=== PATIENT | male | born 1975 | race Caucasian/White ===

== ENCOUNTER 2016-08-29 18:26 | Inpatient (IN) | payer OTHER ==
[2016-08-29 19:07] LABS: % IMMATURE GRANULYOCYTES 0.4 % (0.0-1.1); ABSOLUTE IMMATURE GRANULOCYTES 0.01 10^3/uL (0.00-0.10); ADD DIFF? NO; ADD MORPH? NO; ADD SCAN? NO; ATYPICAL LYMPHOCYTE FLAG 60 (0-99); FRAGMENT RBC FLAG 0 (0-99); HEMATOCRIT 43.4 % (40.0-51.0); HEMOGLOBIN 15.5 g/dL (13.7-17.5); LEFT SHIFT FLG 0 (0-99); LIPEMIA HEMOLYSIS FLAG 90 (0-99); MEAN CELL HEMOGLOBIN 33.7 pg (27.9-34.1); MEAN CELL HEMOGLOBIN CONCENTR. 35.7 g/dL (32.4-36.7); MEAN CELL VOLUME 94.3 fL (81.5-99.8); MEAN PLATELET VOLUME 10.1 fL (8.7-11.7); PLATELET CLUMPS FLAG 0 (0-99); PLATELET COUNT 57 10^3/uL (150-400)
[2016-08-29] MEDS ORDERED: ONDANSETRON 4 MG/2 ML VIAL IVP ONE (19:09)
[2016-08-29] MEDS ORDERED: LORazepam 2 MG/ML INJ IVP ONE ×2 (19:09→20:19)
[2016-08-29] MEDS ORDERED: NS 1,000 ML IV ONE (19:09)
--- NOTE | 2016-08-29 19:17 | EDPHY ---
H & P Stated Complaint: Fever 24 hours, flank pain, weakness L arm. Time Seen by Provider: 08/29/16 18:53 HPI/ROS: CHIEF COMPLAINT: Fever, hand weakness HISTORY OF PRESENT ILLNESS: Patient is a 40-year-old man who has a history of alcohol abuse comes to the emergency department complaining of a fever, difficulty reading and hand weakness. He states that he drinks daily but stopped drinking 24 hours ago. He has mild tremors. He has not had a seizure. He did take the dog for a walk this afternoon and felt unusually fatigued and diaphoretic afterwards. He denies chest pain or shortness of breath. He has not had any recent flu or cold-like symptoms. No cough or sinus congestion or throat pain. After walking the dog he sat down to read emails. He states that the words in the e-mail appeared jumbled. He then tried to respond to the mail but states he cannot lift his hands off of the desk. He said there for about 10 minutes until he regained function of his right hand and was able to lift his left hand up. He went and laid on the couch for about half an hour until his symptoms seemed to improve. He sent a text to his girlfriend asked her to take him to the urgent care. They went to 2 urgent cares and both referred him to the emergency department. Denies any trauma. He does have a mild headache. He also complains of dysuria over the last week. They thought that he had a urinary tract infection and have been treating at home with cranberry juice and Pyridium. He denies risk of STD. No testicular pain. No back pain. He did vomit once last night but no longer feels nauseous. He is not an IV drug abuser. REVIEW OF SYSTEMS: Constitutional: See HPI EENTM: denies: blurred vision, double vision, nose congestion Respiratory: denies: cough, shortness of breath Cardiac: denies: chest pain, irregular heart rate, lightheadedness, palpitations Gastrointestinal/Abdominal: see HPI Genitourinary: See HPI Musculoskeletal: denies: joint pain, muscle pain Skin: denies: lesions, rash, jaundice, bruising Neurological: See HPI Hematologic/Lymphatic: denies: blood clots, easy bleeding, easy bruising Immunologic/allergic: denies: HIV/AIDS, transplant EXAM: GENERAL: Well-appearing, well-nourished and in no acute distress. HEAD: Atraumatic, normocephalic. EYES: Pupils equal round and reactive to light, extraocular movements intact, sclera anicteric, conjunctiva are normal. ENT: TMs normal, nares patent, oropharynx clear without exudates. Moist mucous membranes. NECK: Normal range of motion, supple without lymphadenopathy or JVD. Negative Kernig's and Brudzinski's LUNGS: Breath sounds clear to auscultation bilaterally and equal. No wheezes rales or rhonchi. HEART: Regular rate and rhythm without murmurs, rubs or gallops. ABDOMEN: Soft, nontender, normoactive bowel sounds. No guarding, no rebound. No masses appreciated. BACK: No CVA tenderness, no spinal tenderness, step-offs or deformities : No discharge with milking of the penile shaft. Mild erythema at the urethral opening. No testicular pain or swelling. EXTREMITIES: Normal range of motion, no pitting or edema. No clubbing or cyanosis. NEUROLOGICAL: Cranial nerves II through XII grossly intact. Normal speech, normal gait. 5/5 strength, normal movement in all extremities, normal sensation , normal movement of arms and hands. No pronator drift. Mild tremor with finger to nose. Normal heel to baires. PSYCH: Normal mood, normal affect. SKIN: Warm, dry, normal turgor, no visible rashes or lesions. Source: Patient, Family Exam Limitations: No limitations - Personal History Current Tetanus/Diphtheria Vaccine: Unsure Current Tetanus Diphtheria and Acellular Pertussis (TDAP): Unsure - Medical/Surgical History Hx Asthma: Yes Hx Chronic Respiratory Disease: No Hx Diabetes: No Hx Cardiac Disease: No Hx Renal Disease: No Hx Cirrhosis: No Hx Alcoholism: No Hx HIV/AIDS: No Hx Splenectomy or Spleen Trauma: No Other PMH: L ORIF hand, asthma - Family History Significant Family History: Hypertension - Social History Smoking Status: Never smoked Alcohol Use: Heavy Drug Use: Marijuana Constitutional: Initial Vital Signs Temperature (C) 39.4 C H 08/29/16 18:33 Heart Rate 133 H 08/29/16 18:33 Respiratory Rate 18 08/29/16 18:33 Blood Pressure 143/87 H 08/29/16 18:33 O2 Sat (%) 94 08/29/16 18:33 O2 Delivery Mode Room Air Allergies/Adverse Reactions: No Known Allergies Allergy (Verified 08/29/16 18:37) Home Medications: Medication Instructions Recorded Albuterol INH Prepack [Proventil 2 puffs IH Q6H PRN 08/29/16 INH Prepack] Medical Decision Making - Diagnostics EKG Interpretation: An EKG obtained and was read and documented in trace view. Please see trace view for full reading and report. Sinus tachycardia, no ischemic changes Imaging: Results: CT scan of the head was obtained. The results of the study are negative. The study was read by Dr. Khalif Valencia. I viewed the images myself on the PACS system. Results: CT scan of the abdomen and pelvis was obtained. The results of the study are negative for kidney stones. The study was read by Dr. Khalif Valencia. I viewed the images myself on the PACS system. ED Course/Re-evaluation: The patient's tremors have improved with Ativan and fluids. I have also given Tylenol. His urinalysis is positive. I will start him on antibiotics. He qualifies for sepsis but not severe sepsis. He is febrile, tachycardic and has a low white blood cell count. Also order CT scan to evaluate for kidney stone. He does not currently have any neurologic deficits other than the tremor. I will treat him with more Ativan as well. 9:00 p.m. discussed the case with Dr. Gage Giron who will admit to the medical service. Differential Diagnosis: Partial list of the Differential diagnosis considered include but were not limited to; alcohol withdrawal, intracranial abscess, pyelonephritis, kidney stone, urinary tract infection, sepsis and although unlikely based on the history and physical exam, I also considered meningitis, spinal cord abscess. Critical Care Time: I spent a total of 25 minutes of critical care time in obtaining history, performing a physical exam, bedside monitoring of interventions, collecting and interpreting tests and discussion with consultants but not including time spent performing procedures. - Data Points Laboratory Results: Laboratory Results 08/29/16 18:50 08/29/16 18:50 08/29/16 08/29/16 18:50 18:50 Total Bilirubin 1.2 mg/dL mg/dL (0.1-1.4) Conjugated Bilirubin 0.7 mg/dL H mg/dL (0.0-0.5) Unconjugated Bilirubin 0.5 mg/dL mg/dL (0.0-1.1) AST 556 IU/L H IU/L (17-59) ALT 255 IU/L H IU/L (21-72) Alkaline Phosphatase 80 IU/L IU/L (38-126) Total Protein 7.8 g/dL g/dL (6.3-8.2) Albumin 4.6 g/dL g/dL (3.5-5.0) RPR Pending Medications Given: Discontinued Medications Acetaminophen (Tylenol) 1,000 mg PO EDNOW ONE Stop: 08/29/16 19:49 Last Admin: 08/29/16 20:00 Dose: 1,000 mg Sodium Chloride (Ns) 1,000 mls @ 0 mls/hr IV ONCE ONE PRN Reason: Wide Open Stop: 08/29/16 19:10 Last Admin: 08/29/16 19:30 Dose: 1,000 mls Ceftriaxone Sodium/Dextrose (Rocephin 1 Gm (Premix)) 50 mls @ 100 mls/hr IV EDNOW ONE PRN Reason: Protocol Stop: 08/29/16 20:45 Last Admin: 08/29/16 20:36 Dose: 50 mls Lorazepam (Ativan Injection) 1 mg IVP EDNOW ONE Stop: 08/29/16 19:10 Last Admin: 08/29/16 19:40 Dose: 1 mg Lorazepam (Ativan Injection) 1 mg IVP EDNOW ONE Stop: 08/29/16 20:20 Last Admin: 08/29/16 20:35 Dose: 1 mg Ondansetron HCl (Zofran) 4 mg IVP EDNOW ONE Stop: 08/29/16 19:10 Last Admin: 08/29/16 19:40 Dose: 4 mg Sodium Chloride (Ns *For Sepsis Order Set Only*) 2,585 ml 30 ml/kg (2585 ml) IV EDNOW ONE Stop: 08/29/16 20:17 Last Admin: 08/29/16 20:00 Dose: 1,585 ml Departure - Departure Disposition: [facility] Inpatient Acute Clinical Impression: Urinary tract infection Qualifiers: Urinary tract infection type: site unspecified Hematuria presence: without hematuria Qualified Code(s): N39.0 - Urinary tract infection, site not specified Alcohol withdrawal Qualifiers: Complication of substance-induced condition: with unspecified complication Qualified Code(s): F10.239 - Alcohol dependence with withdrawal, unspecified Sepsis Qualifiers: Sepsis type: sepsis due to unspecified organism Qualified Code(s): A41.9 - Sepsis, unspecified organism Condition: Fair
[2016-08-29 19:22] LABS: ANION GAP 17 mEq/L (8-16); CALCIUM 9.3 mg/dL (8.5-10.4); CARBON DIOXIDE 19 mEq/l (22-31); CHLORIDE 98 mEq/L (97-110); GLOMERULAR FILTRATION RATE > 60; GLUCOSE 101 mg/dL (70-100); POTASSIUM 3.4 mEq/L (3.5-5.2); SODIUM 134 mEq/L (134-144)
--- NOTE | 2016-08-29 19:30 | CPEKG ---
Heart Rate: 122 RR Interval: 492 P-R Interval: 148 QRSD Interval: 74 QT Interval: 288 QTC Interval: 411 P [place]: 63 QRS [place]: -10 T Wave [place]: 54 EKG Severity - OTHERWISE NORMAL ECG - EKG Impression: SINUS TACHYCARDIA Electronically Signed By: Jose Elias Mayen 29-Aug-2016 19:49:51
[2016-08-29 19:33] LABS: APTT 28.8 SEC (23.0-38.0); INR 1.05 (0.83-1.16); PROTIME(PATIENT) 13.6 SEC (12.0-15.0)
[2016-08-29] MEDS ORDERED: ACETAMINOPHEN 500 MG TAB PO ONE (19:48)
[2016-08-29 19:58] LABS: COLOR AMBER; LEUKOCYTE ESTERASE,URINE NEGATIVE (NEGATIVE); NITRITE,URINE POSITIVE (NEGATIVE)
[2016-08-29 20:03] LABS: MUCUS 2+ /lpf (NONE-1+)
[2016-08-29] MEDS ORDERED: NS 1,000 ML BAG *FOR SEPSIS ORDER SET ONLY IV ONE (20:16)
[2016-08-29] MEDS ORDERED: PROTOCOL POTASSIUM 1 DOSE MISC PRN (23:35)
[2016-08-29] MEDS ORDERED: PROTOCOL MAGNESIUM 1 DOSE IV PRN (23:35)
[2016-08-29] MEDS ORDERED: ONDANSETRON DISINTEGRATING 4 MG TAB PO PRN (23:35)
[2016-08-29] MEDS ORDERED: HYDROCODONE/APAP 5/325 TAB PO PRN (23:35)
[2016-08-29] MEDS ORDERED: PROTOCOL K PHOSPHATE 1 DOSE IV PRN (23:35)
[2016-08-29] MEDS ORDERED: PROMETHAZINE HCL 25 MG/ML INJ IVP PRN (23:35)
[2016-08-29] MEDS ORDERED: LORazepam 2 MG/ML INJ IVP PRN ×2 (23:35)
[2016-08-29] MEDS ORDERED: ONDANSETRON 4 MG/2 ML VIAL IVP PRN (23:35)
[2016-08-29] MEDS ORDERED: ALBUTEROL 60 PUFFS/8 GM MDI IH PRN (23:40)
[2016-08-30 00:11] LABS: ALBUMIN 4.6 g/dL (3.5-5.0); BILIRUBIN,TOTAL 1.2 mg/dL (0.1-1.4); BILIRUBIN-CONJUGATED 0.7 mg/dL (0.0-0.5); BILIRUBIN-UNCONJUGATED 0.5 mg/dL (0.0-1.1); TOTAL PROTEIN 7.8 g/dL (6.3-8.2)
--- NOTE | 2016-08-30 00:51 | PDGENHP ---
History and Physical - Chief Complaint fever, suspected uti, hand tingling/weakness - History of Present Illness 40 yo M with PMH of alcohol abuse and asthma presenting with multiple complaints , but primarily concerned about 2 days of fever to 102 at home along with urinary burning and frequency concerning for UTI. Patient notes he has never had a UTI before. He is in a monogamous relationship for the last year, and both he and his partner have had STI testing in the last year that was negative. He notes he began to have some burning at the opening of his urethra along with crusting that he would need to pry apart. He does not believe he has had any penile discharge, but if there has been any, he thinks it was clear and not c/w pus. He has never had similar sxs in the past. His girlfriend present at bedside has not had any vaginal or urinary symptoms during this time. His urine has not appeared or smelled different until he began Azo at home and his urine started to look brown. Yesterday, he began to also develop nausea and vomiting, and because of that, he has not had any alcohol since yesterday, which is the longest he has gone without a drink in months. Today, he was trying to respond to an email and suddenly felt as if he couldn't make sense of the words he was reading, he then began to feel as if he could not move his arms off the table. He felt like his brain could not transmit the message to get them to move. It was worse in his hands, but extended to his forearms. That lasted a few minutes, but then he was able to life his right hand and use it to lift his left hand. He states his hands now feel mostly normal other than some mild tingling like pins and needles in both hands, left worse than right. He has had some tremors in the ER and that is usual for him if he begins to have withdrawal. He does not intend to quit drinking at this time. History Information - Allergies/Home Medication List Allergies/Adverse Reactions: No Known Allergies Allergy (Verified 08/29/16 18:37) Home Medications: Albuterol INH Prepack [Proventil INH Prepack] 2 puffs IH Q6H PRN 08/29/16 [Last Taken Unknown] I have personally reviewed and updated: family history, medical history, social history, surgical history - Past Medical History asthma Additional medical history: alcohol abuse - Surgical History Additional surgical history: hand surgery - Family History Positive for: cancer (distant family members on his father's side with prostate cancer) Additional family history: parents and 4 siblings all in good health - Social History Smoking Status: Never smoked Alcohol Use: Heavy (5-7 drinks per day on average, occasional binge drinking when he will drink much more) Drug Use: Marijuana Review of Systems ROS: 10pt was reviewed & negative except for what was stated in HPI & below Physical Exam Temp Pulse Resp BP Pulse Ox 37.8 C 101 H 16 102/55 L 97 08/29/16 21:32 08/29/16 22:00 08/29/16 22:00 08/29/16 22:00 08/29/16 22:00 O2 (L/minute) 2 Constitutional: no apparent distress, appears nourished, unkempt Eyes: PERRL, EOMI Ears, Nose, Mouth, Throat: moist mucous membranes, hearing normal Cardiovascular: regular rate and rhythym, no murmur, rub, or gallop, No edema Respiratory: no respiratory distress, no rales or rhonchi, clear to auscultation Gastrointestinal: normoactive bowel sounds, soft, non-tender abdomen, no palpable masses Genitourinary: no bladder fullness, no bladder tenderness, other (irritation at urethral opening, no discharge noted, normal testicles) Skin: warm, normal color Musculoskeletal: full muscle strength, no muscle tenderness Neurologic: AAOx3, sensation intact bilaterally, No weakness, No numbness Psychiatric: interacting appropriately, not encephalopathic, anxious, other ( mild bilateral upper extremity tremor) Lab Data & Imaging Review 08/29/16 18:50 08/29/16 18:50 WBC 2.45 10^3/uL (3.80-9.50) L 08/29/16 18:50 RBC 4.60 10^6/uL (4.40-6.38) 08/29/16 18:50 Hgb 15.5 g/dL (13.7-17.5) 08/29/16 18:50 Hct 43.4 % (40.0-51.0) 08/29/16 18:50 MCV 94.3 fL (81.5-99.8) 08/29/16 18:50 MCH 33.7 pg (27.9-34.1) 08/29/16 18:50 MCHC 35.7 g/dL (32.4-36.7) 08/29/16 18:50 RDW 12.0 % (11.5-15.2) 08/29/16 18:50 Plt Count 57 10^3/uL (150-400) L 08/29/16 18:50 MPV 10.1 fL (8.7-11.7) 08/29/16 18:50 Neut % (Auto) 68.6 % (39.3-74.2) 08/29/16 18:50 Lymph % (Auto) 11.8 % (15.0-45.0) L 08/29/16 18:50 [place] % (Auto) 18.0 % (4.5-13.0) H 08/29/16 18:50 Eos % (Auto) 0.0 % (0.6-7.6) L 08/29/16 18:50 Baso % (Auto) 1.2 % (0.3-1.7) 08/29/16 18:50 Nucleat RBC Rel Count 0.0 % (0.0-0.2) 08/29/16 18:50 Absolute Neuts (auto) 1.68 10^3/uL (1.70-6.50) L 08/29/16 18:50 Absolute Lymphs (auto) 0.29 10^3/uL (1.00-3.00) L 08/29/16 18:50 Absolute Monos (auto) 0.44 10^3/uL (0.30-0.80) 08/29/16 18:50 Absolute Eos (auto) 0.00 10^3/uL (0.03-0.40) L 08/29/16 18:50 Absolute Basos (auto) 0.03 10^3/uL (0.02-0.10) 08/29/16 18:50 Absolute Nucleated RBC 0.00 10^3/uL (0-0.01) 08/29/16 18:50 Immature Gran % 0.4 % (0.0-1.1) 08/29/16 18:50 Immature Gran # 0.01 10^3/uL (0.00-0.10) 08/29/16 18:50 PT 13.6 SEC (12.0-15.0) 08/29/16 18:50 INR 1.05 (0.83-1.16) 08/29/16 18:50 APTT 28.8 SEC (23.0-38.0) 08/29/16 18:50 VBG Lactic Acid 1.2 mmol/L (0.7-2.1) 08/29/16 18:50 Sodium 134 mEq/L (134-144) 08/29/16 18:50 Potassium 3.4 mEq/L (3.5-5.2) L 08/29/16 18:50 Chloride 98 mEq/L (97-110) 08/29/16 18:50 Carbon Dioxide 19 mEq/l (22-31) L 08/29/16 18:50 Anion Gap 17 mEq/L (8-16) H 08/29/16 18:50 BUN 12 mg/dL (7-23) 08/29/16 18:50 Creatinine 1.0 mg/dL (0.7-1.3) 08/29/16 18:50 Estimated GFR > 60 08/29/16 18:50 Glucose 101 mg/dL (70-100) H 08/29/16 18:50 Calcium 9.3 mg/dL (8.5-10.4) 08/29/16 18:50 Total Bilirubin 1.2 mg/dL (0.1-1.4) 08/29/16 18:50 Conjugated Bilirubin 0.7 mg/dL (0.0-0.5) H 08/29/16 18:50 Unconjugated Bilirubin 0.5 mg/dL (0.0-1.1) 08/29/16 18:50 AST 556 IU/L (17-59) H 08/29/16 18:50 ALT 255 IU/L (21-72) H 08/29/16 18:50 Alkaline Phosphatase 80 IU/L (38-126) 08/29/16 18:50 Total Protein 7.8 g/dL (6.3-8.2) 08/29/16 18:50 Albumin 4.6 g/dL (3.5-5.0) 08/29/16 18:50 Urine Color FELISHA 08/29/16 15:30 Urine Appearance CLEAR 08/29/16 15:30 Urine pH 5.0 (5.0-7.5) 08/29/16 15:30 Ur Specific [place] 1.029 (1.002-1.030) 08/29/16 15:30 Urine Protein 2+ (NEGATIVE) H 08/29/16 15:30 Urine Ketones 2+ (NEGATIVE) H 08/29/16 15:30 Urine Blood 2+ (NEGATIVE) H 08/29/16 15:30 Urine Nitrate POSITIVE (NEGATIVE) H 08/29/16 15:30 Urine Bilirubin NEGATIVE (NEGATIVE) 08/29/16 15:30 Urine Urobilinogen 4.0 EU (0.2-1.0) H 08/29/16 15:30 Ur Leukocyte Esterase NEGATIVE (NEGATIVE) 08/29/16 15:30 Urine RBC 5-10 /hpf (0-3) H 08/29/16 15:30 Urine WBC 1-3 /hpf (0-3) 08/29/16 15:30 Ur Epithelial Cells NONE SEEN /lpf (NONE-1+) 08/29/16 15:30 Urine Mucus 2+ /lpf (NONE-1+) H 08/29/16 15:30 Ur Culture Indicated? INDICATED (NI) H 08/29/16 15:30 Urine Glucose NEGATIVE (NEGATIVE) 08/29/16 15:30 Influenza Typ A,B (DFA) NEGATIVE FOR FLU (NEGATIVE) 08/29/16 19:30 Group A Strep Screen NEGATIVE (NEGATIVE) 08/29/16 19:30 Visualized and Interpreted Chest x-ray results: Yes Chest X-Ray results: normal Visualized and Interpreted imaging results: Yes Interpretation: head CT: no acute findings. abd/pelvis ct: hepatic steatosis, no urinary tract calculus Visualized and Interpreted EKG results: Yes EKG Interpretation: Positive for: other (sinus tachycardia, no ischemic changes) Assessment & Plan Assessment: 40 yo M pw fever, dysuria and transient upper extremity weakness in setting of etoh w/d and UTI # UTI: unusual UA with blood, nitrates, urobilinogen and mucus. Does have s/s concerning for urethritis/STI such as gonorrhea. Gonorrhea/chlamydia testing pending. Urine cultures pending. Abd CT w/o abnormalities of urinary tract appreciated. Started on ctx in ER and will continue for now. # sepsis: with fever to 39.2 and tachycardia, leukopenia in setting of suspected infection as above. No other localizing sxs at this point other than urinary. HD stable w/o e/o severe sepsis or end organ dysfunction currently. # upper extremity weakness/numbness/tingling: unusual constellation of neuro sxs affecting bilateral upper extremity prior to admit. Head CT negative. Patient noted to be tremulous (more so prior to getting ativan per ED doctor), and query if inability to move/control arms was related to tremors in setting of etoh w/d. Plan for now is to monitor sxs, consider further imaging such as brain MRI if sxs recur and are concerning for something more focal. Will add RPR /B12/TSH. # alcoholic hepatitis: with ast:alt pattern c/w alc hep, mild transaminitis with normal coags and normal bili/alk phos. Will trend. # etoh abuse and w/d: patient less than 24 hours since last drink and beginning to have s/s of w/d. States he has not had w/d in the past, but it has been many months since he has gone w/o drinking. He does not wish to quit alcohol, but also does not want any alcohol tonight. If w/d becomes more severe in am, will need to discuss continuing CIWA versus starting etoh. Hepatic steatosis noted on abd ct, alc hep as above. # n/v: in setting of suspect urinary versus urethral infection as above and likely related to same, seems to have resolved, prn antiemetics # thrombocytopenia/leukopenia: in setting of infection as well as longstanding heavy etoh abuse and likely bone marrow suppression, trending # asthma: no e/o exacerbation, prn albuterol # dispo: IP status, multiple active comorbid conditions will require > 48 hours stay for treatment and evaluation Patient new to my care. Old records reviewed and summarized as above. Care plan reviewed with ER doctor including plans for abx. Further hx obtained from patients girlfriend present at bedside.
[2016-08-30 06:04] LABS: % IMMATURE GRANULYOCYTES 0.4 % (0.0-1.1); ABSOLUTE IMMATURE GRANULOCYTES 0.01 10^3/uL (0.00-0.10); ADD DIFF? NO; ADD MORPH? NO; ADD SCAN? NO; ATYPICAL LYMPHOCYTE FLAG 0 (0-99); FRAGMENT RBC FLAG 0 (0-99); HEMATOCRIT 38.3 % (40.0-51.0); HEMOGLOBIN 13.5 g/dL (13.7-17.5); LEFT SHIFT FLG 0 (0-99); LIPEMIA HEMOLYSIS FLAG 90 (0-99); MEAN CELL HEMOGLOBIN 33.8 pg (27.9-34.1); MEAN CELL HEMOGLOBIN CONCENTR. 35.2 g/dL (32.4-36.7); MEAN CELL VOLUME 95.8 fL (81.5-99.8); MEAN PLATELET VOLUME 10.7 fL (8.7-11.7); PLATELET CLUMPS FLAG 0 (0-99)
[2016-08-30 06:06] LABS: PLATELET COUNT 46 10^3/uL (150-400)
[2016-08-30 06:20] LABS: ALANINE AMINOTRANSFERASE 211 IU/L (21-72); ALBUMIN 3.7 g/dL (3.5-5.0); ALKALINE PHOSPHATASE 62 IU/L (38-126); ANION GAP 11 mEq/L (8-16); ASPARTATE AMINOTRANSFERASE 478 IU/L (17-59); BILIRUBIN,TOTAL 0.8 mg/dL (0.1-1.4); BILIRUBIN-CONJUGATED 0.4 mg/dL (0.0-0.5); BILIRUBIN-UNCONJUGATED 0.4 mg/dL (0.0-1.1); CARBON DIOXIDE 21 mEq/l (22-31); CHLORIDE 101 mEq/L (97-110); GLOMERULAR FILTRATION RATE > 60; GLUCOSE 96 mg/dL (70-100); MAGNESIUM 1.6 mg/dL (1.6-2.3); POTASSIUM 3.3 mEq/L (3.5-5.2); SODIUM 133 mEq/L (134-144); TOTAL PROTEIN 6.4 g/dL (6.3-8.2)
[2016-08-30 06:42] LABS: PLATELET ESTIMATE DECREASED (ADEQ)
[2016-08-30] MEDS ORDERED: POTASSIUM CL 10 MEQ TAB PO ONE ×2 (08:27→22:01)
[2016-08-30] MEDS: FAMOTIDINE 20 MG TAB PO SCH ×2 (08:53→21:08)
[2016-08-30] MEDS: ACETAMINOPHEN 325 MG TAB PO PRN ×2 (08:53→19:28)
[2016-08-30] MEDS: FOLIC ACID 1 MG TAB PO SCH (08:53)
[2016-08-30] MEDS: MULTIVITAMINS 1 EACH TAB PO SCH (08:53)
[2016-08-30] MEDS: NS 1,000 ML IV SCH ×2 (08:54→19:28)
[2016-08-30] MEDS ORDERED: MAGNESIUM SULF 1 GM/DEXTROSE 100 ML IV ONE (09:29)
[2016-08-30 12:44] LABS: CHLAMYDIA AMPLIFICATION GENPRB NEGATIVE (NEGATIVE)
[2016-08-30] MEDS ORDERED: chlordiazePOXIDE 25 MG CAP PO PRN (12:59)
--- NOTE | 2016-08-30 16:18 | HOSPPROG ---
Hospitalist Progress Note Assessment/Plan: * Sepsis - doubt UTI, ? urethritis/epididymitis -IV ceftriaxone, culture pending -d/w urology Dr. Wells - testicular pain * Etoh withdrawal -benzos per CIWA * Transient neuro symptoms -suspect seizure due to withdrawal * Pancytopenia -likely due to alcohol * Etoh hepatitis -follow Subjective: c/o testicular pain Objective: Vital Signs Temp Pulse Resp BP Pulse Ox 38.2 C 99 18 116/74 90 L 08/30/16 15:28 08/30/16 15:28 08/30/16 15:28 08/30/16 15:28 08/30/16 15:28 Laboratory Results 08/30/16 05:35 08/30/16 05:35 08/29/16 08/30/16 08/31/16 05:59 05:59 05:59 Intake Total 2585 Balance 2585 PT 13.6 SEC (12.0-15.0) 08/29/16 18:50 INR 1.05 (0.83-1.16) 08/29/16 18:50 testicular US: unremarkable - Physical Exam Constitutional: no apparent distress, appears nourished, not in pain Cardiovascular: regular rate and rhythym, no murmur, rub, or gallop Respiratory: no respiratory distress, no rales or rhonchi, clear to auscultation Gastrointestinal: normoactive bowel sounds, soft, non-tender abdomen, no palpable masses Genitourinary: other (ureteral meatus with some external irritation and skin breakdown, no cellulitis, minimal testicular tenderness, some epidymal tenderness) Skin: no rashes or abrasions, no fluctuance, no induration Neurologic: AAOx3, sensation intact bilaterally Psychiatric: interacting appropriately, not anxious, thought process linear, encephalopathic (some mild confusion due to withdrawal and benzos) ICD10 Worksheet Patient Problems: Problems Problem Status Onset Alcohol withdrawal Acute Sepsis Acute Urinary tract infection Acute
--- NOTE | 2016-08-30 18:34 | PDCONSULT ---
[employer] Note: Requesting CORNELL Rodríguez CC: Fever and dysuria HPI 40 y/o WM with h/o heavy alcohol use admitted for fever of unknown origin. +dysuria x 1 week associated with frequency and diarrhea. He also has some urethral discharge. Mild testicular pain. US negative. No prior truama. No h/ o stricture or manipulation. No new sexual partners. GC/Chlamydia neg. UA abnl. CX pending. Symptoms improving with ceftriaxone PMH/PSH/SH/FH and medications and summarized on admission H&P. ROS- +diarrhea +? Seizure etoh related otherwise neg except HPI PE: VSS , fever curve trending down AOX4 NCAT no increase in resp effort abd soft, nt/nd nl circ phallus nl testes without abscess or tenderness mild dried discharge at meatus. no C/C/E A/P: FUO- ? prostatitis vs non gillian urethritis- improving with rocephin. Continue abx If worsens consider CT abd/pelvis alcohol withdrawal
[2016-08-30 19:44] LABS: POTASSIUM 3.5 mEq/L (3.5-5.2)
[2016-08-30] MEDS: LORazepam 1 MG TAB PO PRN (21:08)
[2016-08-31] MEDS: ACETAMINOPHEN 325 MG TAB PO PRN ×4 (03:18→21:04)
[2016-08-31] MEDS: NS 1,000 ML IV SCH (03:19)
[2016-08-31 05:54] LABS: % IMMATURE GRANULYOCYTES 0.5 % (0.0-1.1); ABSOLUTE IMMATURE GRANULOCYTES 0.01 10^3/uL (0.00-0.10); ADD DIFF? NO; ADD MORPH? NO; ADD SCAN? NO; ATYPICAL LYMPHOCYTE FLAG 0 (0-99); FRAGMENT RBC FLAG 0 (0-99); HEMATOCRIT 38.6 % (40.0-51.0); HEMOGLOBIN 13.8 g/dL (13.7-17.5); LEFT SHIFT FLG 10 (0-99); LIPEMIA HEMOLYSIS FLAG 90 (0-99); MEAN CELL HEMOGLOBIN 33.4 pg (27.9-34.1); MEAN CELL HEMOGLOBIN CONCENTR. 35.8 g/dL (32.4-36.7); MEAN CELL VOLUME 93.5 fL (81.5-99.8); PLATELET CLUMPS FLAG 10 (0-99); RED BLOOD CELL COUNT 4.13 10^6/uL (4.40-6.38); RED CELL DISTRIBUTION WIDTH 11.8 % (11.5-15.2)
[2016-08-31 06:09] LABS: ALANINE AMINOTRANSFERASE 234 IU/L (21-72); ALBUMIN 3.3 g/dL (3.5-5.0); ALKALINE PHOSPHATASE 53 IU/L (38-126); ANION GAP 10 mEq/L (8-16); ASPARTATE AMINOTRANSFERASE 651 IU/L (17-59); BILIRUBIN,TOTAL 0.7 mg/dL (0.1-1.4); BILIRUBIN-CONJUGATED 0.5 mg/dL (0.0-0.5); BILIRUBIN-UNCONJUGATED 0.2 mg/dL (0.0-1.1); CALCIUM 7.9 mg/dL (8.5-10.4); CARBON DIOXIDE 20 mEq/l (22-31); CHLORIDE 99 mEq/L (97-110); CREATININE 0.9 mg/dL (0.7-1.3); GLOMERULAR FILTRATION RATE > 60; GLUCOSE 98 mg/dL (70-100); MAGNESIUM 1.9 mg/dL (1.6-2.3); POTASSIUM 3.3 mEq/L (3.5-5.2); SODIUM 129 mEq/L (134-144); TOTAL PROTEIN 5.9 g/dL (6.3-8.2)
[2016-08-31 06:24] LABS: PLATELET COUNT 33 10^3/uL (150-400)
[2016-08-31 08:08] LABS: PLATELET ESTIMATE DECREASED (ADEQ)
[2016-08-31] MEDS: MULTIVITAMINS 1 EACH TAB PO SCH (09:30)
[2016-08-31] MEDS: FAMOTIDINE 20 MG TAB PO SCH (09:30)
[2016-08-31] MEDS: FOLIC ACID 1 MG TAB PO SCH (09:31)
[2016-08-31] MEDS ORDERED: POTASSIUM CL 10 MEQ TAB PO ONE ×2 (10:32→18:18)
[2016-08-31] MEDS: LORazepam 1 MG TAB PO PRN (10:47)
[2016-08-31] MEDS: CIPROFLOXACIN 400 MG/DEXTROSE 200 ML IV SCH ×2 (15:19→20:54)
--- NOTE | 2016-08-31 16:10 | HOSPPROG ---
Hospitalist Progress Note Assessment/Plan: * Acute prostatitis with sepsis -still febrile on IV ceftriaxone -change to IV cipro * Etoh withdrawal -benzos per CIWA * Transient neuro symptoms -suspect seizure due to withdrawal * Pancytopenia -likely due to alcohol * Etoh hepatitis -follow Subjective: Urinating blood at times. still with fever Objective: Vital Signs Temp Pulse Resp BP Pulse Ox 39.1 C H 95 16 119/84 H 90 L 08/31/16 15:47 08/31/16 15:47 08/31/16 15:47 08/31/16 15:47 08/31/16 15:47 Laboratory Results 08/31/16 05:25 08/31/16 05:25 08/30/16 08/31/16 09/01/16 05:59 05:59 05:59 Intake Total 4365 Output Total 3050 350 Balance 1315 -350 PT 13.6 SEC (12.0-15.0) 08/29/16 18:50 INR 1.05 (0.83-1.16) 08/29/16 18:50 - Physical Exam Constitutional: no apparent distress, appears nourished, not in pain Cardiovascular: regular rate and rhythym, no murmur, rub, or gallop Respiratory: no respiratory distress, no rales or rhonchi, clear to auscultation Gastrointestinal: normoactive bowel sounds, soft, non-tender abdomen, no palpable masses Skin: no rashes or abrasions, no fluctuance, no induration Neurologic: AAOx3, sensation intact bilaterally Psychiatric: interacting appropriately, not anxious, not encephalopathic, thought process linear, other (a little somnolent but arouses easily and is interactive) ICD10 Worksheet Patient Problems: Problems Problem Status Onset Alcohol withdrawal Acute Sepsis Acute Urinary tract infection Acute
[2016-08-31 18:08] LABS: POTASSIUM 3.2 mEq/L (3.5-5.2)
[2016-09-01] MEDS: ACETAMINOPHEN 325 MG TAB PO PRN ×2 (04:46→15:47)
[2016-09-01] MEDS ORDERED: KETOROLAC 30 MG/1 ML SDV IVP PRN (05:25)
[2016-09-01 05:37] LABS: ADD MORPH? NO; ADD SCAN? YES; ATYPICAL LYMPHOCYTE FLAG 0 (0-99); FRAGMENT RBC FLAG 0 (0-99); HEMATOCRIT 41.1 % (40.0-51.0); HEMOGLOBIN 14.9 g/dL (13.7-17.5); LEFT SHIFT FLG 10 (0-99); LIPEMIA HEMOLYSIS FLAG 90 (0-99); MEAN CELL HEMOGLOBIN 33.5 pg (27.9-34.1); MEAN CELL HEMOGLOBIN CONCENTR. 36.3 g/dL (32.4-36.7); MEAN CELL VOLUME 92.4 fL (81.5-99.8); MEAN PLATELET VOLUME 11.1 fL (8.7-11.7); PLATELET CLUMPS FLAG 0 (0-99); RED BLOOD CELL COUNT 4.45 10^6/uL (4.40-6.38); RED CELL DISTRIBUTION WIDTH 11.8 % (11.5-15.2)
[2016-09-01 05:42] LABS: PLATELET COUNT 28 10^3/uL (150-400)
[2016-09-01 05:44] LABS: ANION GAP 9 mEq/L (8-16); CALCIUM 8.1 mg/dL (8.5-10.4); CARBON DIOXIDE 22 mEq/l (22-31); CHLORIDE 99 mEq/L (97-110); CREATININE 0.9 mg/dL (0.7-1.3); GLOMERULAR FILTRATION RATE > 60; GLUCOSE 112 mg/dL (70-100); POTASSIUM 3.4 mEq/L (3.5-5.2); SODIUM 130 mEq/L (134-144)
[2016-09-01 06:13] LABS: ADD DIFF? YES; SCAN POSITIVE
[2016-09-01 06:21] LABS: PLATELET ESTIMATE DECREASED (ADEQ)
[2016-09-01 06:22] LABS: TOXIC GRANULATION PRESENT; TOXIC VACUOLIZATION PRESENT
[2016-09-01] MEDS ORDERED: POTASSIUM CL 10 MEQ TAB PO ONE ×2 (07:31→19:52)
[2016-09-01] MEDS: CIPROFLOXACIN 400 MG/DEXTROSE 200 ML IV SCH ×2 (08:21→20:10)
[2016-09-01] MEDS: FOLIC ACID 1 MG TAB PO SCH (08:21)
[2016-09-01] MEDS: THIAMINE HCL 100 MG TAB PO SCH (08:21)
[2016-09-01] MEDS: MULTIVITAMINS 1 EACH TAB PO SCH (08:21)
[2016-09-01] MEDS ORDERED: ALBUTEROL 3 ML DEYVIAL IH PRN (10:36)
--- NOTE | 2016-09-01 10:42 | HOSPPROG ---
Hospitalist Progress Note Assessment/Plan: 40 year old man presents with fevers nausea and urinary symptoms. Evaluation included multiple serologies as well as influenza all of which were negative. He also had imaging including a CT scan of his abdomen and pelvis. At this time it is felt he has acute prostatitis with sepsis. He was initially treated with ceftriaxone however changed to Cipro yesterday as he continued to be febrile. Overnight he says he feels much better on the Cipro and feels that he is getting better finally. He has minimal urinary symptoms currently. He denies any cough shortness of breath, no abdominal complaints. * Acute prostatitis with sepsis * Doing better on IV Cipro will monitor him for 24 hours and consider discharge if he continues to improve and be afebrile. * reactive airways disease with acute exacerbation. Patient has been using his inhaler will change to albuterol nebulizer and follow symptoms will not give him steroids at this time. * Etoh withdrawal * benzos per CIWA * Encouraged to get up and walk more today * Will give resources for alcohol rehab. * Transient neuro symptoms * suspect seizure due to withdrawal, none recently * Pancytopenia * likely due to alcohol, the hemoglobin normal. MCV normal. * Recheck CBC tomorrow and manual diff if continues to decrease white count and platelet count would need to evaluate with Oncology Hematology prior to discharge * Etoh hepatitis * follow reviewed CT which showed fatty infiltration of the liver Subjective: Feels much better has not been febrile this morning. Thinks the Cipro is helping him no urinary symptoms currently Objective: Vital Signs Temp Pulse Resp BP Pulse Ox 36.7 C 89 14 109/75 92 09/01/16 07:52 09/01/16 07:52 09/01/16 07:52 09/01/16 07:52 09/01/16 07:52 Laboratory Results 09/01/16 05:20 09/01/16 05:20 08/31/16 09/01/16 09/02/16 05:59 05:59 06:59 Intake Total 4365 1605 Output Total 3050 1425 Balance 1315 180 PT 13.6 SEC (12.0-15.0) 08/29/16 18:50 INR 1.05 (0.83-1.16) 08/29/16 18:50 - Physical Exam Constitutional: no apparent distress Eyes: PERRL, EOMI, No icteric sclera Ears, Nose, Mouth, Throat: moist mucous membranes, hearing normal, ears appear normal Cardiovascular: regular rate and rhythym, no murmur, rub, or gallop Respiratory: no respiratory distress, no rales or rhonchi, clear to auscultation Gastrointestinal: normoactive bowel sounds, soft, non-tender abdomen, no palpable masses Genitourinary: no bladder fullness Skin: warm, normal color Musculoskeletal: no muscle tenderness, normal joint ROM Neurologic: AAOx3 Psychiatric: interacting appropriately, not anxious, not encephalopathic ICD10 Worksheet Patient Problems: Problems Problem Status Onset Urinary tract infection Acute Alcohol withdrawal Acute Sepsis Acute
[2016-09-01] MEDS: CALCIUM CARBONATE 500 MG CHEWABLE TAB PO PRN (15:47)
[2016-09-01 19:10] LABS: POTASSIUM 3.6 mEq/L (3.5-5.2)
[2016-09-01] MEDS ORDERED: traZODone 50 MG TAB PO PRN (20:27)
[2016-09-02 05:24] LABS: ADD MORPH? NO; FRAGMENT RBC FLAG 0 (0-99); HEMATOCRIT 44.4 % (40.0-51.0); HEMOGLOBIN 15.9 g/dL (13.7-17.5); LEFT SHIFT FLG 50 (0-99); LIPEMIA HEMOLYSIS FLAG 90 (0-99); MEAN CELL HEMOGLOBIN 33.5 pg (27.9-34.1); MEAN CELL HEMOGLOBIN CONCENTR. 35.8 g/dL (32.4-36.7); MEAN CELL VOLUME 93.7 fL (81.5-99.8); MEAN PLATELET VOLUME 11.1 fL (8.7-11.7); PLATELET CLUMPS FLAG 0 (0-99); RED BLOOD CELL COUNT 4.74 10^6/uL (4.40-6.38); RED CELL DISTRIBUTION WIDTH 11.9 % (11.5-15.2)
[2016-09-02 05:31] LABS: ADD DIFF? YES; ADD SCAN? NO; ATYPICAL LYMPHOCYTE FLAG 300 (0-99); PLATELET COUNT 31 10^3/uL (150-400)
[2016-09-02 05:37] LABS: MAGNESIUM 2.2 mg/dL (1.6-2.3); POTASSIUM 3.9 mEq/L (3.5-5.2)
[2016-09-02 06:45] LABS: PLATELET ESTIMATE DECREASED (ADEQ)
[2016-09-02] MEDS ORDERED: POTASSIUM CL 10 MEQ TAB PO ONE (07:21)
[2016-09-02 08:00] VITALS: BP 107/73; PULSE 116; RESP 18; TEMP 99.9; O2SAT 92
[2016-09-02] MEDS: THIAMINE HCL 100 MG TAB PO SCH (08:22)
[2016-09-02] MEDS: FOLIC ACID 1 MG TAB PO SCH (08:23)
[2016-09-02] MEDS: MULTIVITAMINS 1 EACH TAB PO SCH (08:23)
[2016-09-02] MEDS: CIPROFLOXACIN 400 MG/DEXTROSE 200 ML IV SCH (08:23)
[2016-09-02] MEDS: CALCIUM CARBONATE 500 MG CHEWABLE TAB PO PRN (08:29)
--- NOTE | 2016-09-02 10:57 | GDS ---
[f rep st] DISCHARGE SUMMARY DIAGNOSES: 1. Acute prostatitis with sepsis, sepsis resolved. 2. Alcoholism. 3. 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 4. Fatty liver secondary to alcoholism. 5. Asthma. 6. Acute alcohol withdrawal seizure. PROCEDURES DONE: 1. Head CT without contrast, nothing acute. 2. Abdominal/pelvic CT scan. No evidence of nephrolithiasis and moderate hepatic steatosis. 3. Testicular ultrasound. Relatively normal. Borderline for varicocele on the left. CONSULTATIONS: Dr. Yoni Wells, Urology. HOSPITAL COURSE: The patient is a 40-year-old alcoholic who comes in with a febrile illness and dys uria. Evaluation included the above procedures and his only symptom at that time was dysuria. He w as placed on empiric ceftriaxone for prostatitis. He remained febrile for 3 days and eventually was transitioned over to Cipro and defervesced. At the time of discharge his symptoms have completely resolved. He has been afebrile for over 24 hours and is feeling much improved. Given the severity of his symptoms and likely prostatitis, he will need ongoing therapy with Cipro for 4 weeks. I disc ussed in detail the side effect profile and what to watch for, including Achilles tendonitis. He has a fairly significant alcoholism, drinking 7-10 drinks of vodka daily. Evidence of bone marro w suppression is likely secondary to his alcohol use. I discussed this in detail with the patient a nd encouraged him to stop cold turkey. He did have an alcohol withdrawal seizure but has transition ed through alcohol withdrawal and is currently asymptomatic. foster care worker met with him and gave hi m some information, help for him as an outpatient. He does need to get a repeat CBC done to follow up. At the time of discharge, his white count is 1.97, improved from 1.6. Platelet count is 31, im proved from 28. Hemoglobin is normal. He needs this rechecked after he has abstained from alcohol to make sure that his bone marrow recovers. Otherwise, he will need evaluation with Hematology. Bryant meeks will be with Dr. Hieu Michael at [facility] in [place]. Again, he nee ds a repeat CBC and followup. He should also follow up with [facility] for his prostatitis in 4 weeks when he is finishing up on his antibiotics. Total time spent with patient on day of discharge and coordination of care is 35 minutes. Copy requested to: Dr. Hieu Michael [facility] [place], [place] /[id number]/MODL
== END 2016-09-02 11:20 | disposition home or self-care (01) | DRG 872 ==
LOC: OBSVTOIN 20:40 → F3E 08-30 07:43
PROVIDERS: ADMIT Student in an Organized Health Care Education/Training Program; ATTEND Internal Medicine
DX: A41.9 Sepsis, unspecified organism (principal); N41.0 Acute prostatitis; F10.230 Alcohol dependence with withdrawal, uncomplicated; K70.10 Alcoholic hepatitis without ascites; J45.909 Unspecified asthma, uncomplicated; D75.89 Other specified diseases of blood and blood-forming organs
CPT/HCPCS: 82607-90; 96365; 97161-GP; 97165-GO; J0696; J0744; J1885; J2405; J3475

== ENCOUNTER 2016-09-30 20:04 | Emergency (ER) | payer OTHER ==
[2016-09-30 20:18] VITALS: O2SAT 96
--- NOTE | 2016-09-30 21:22 | EDPHY ---
H & P Stated Complaint: LTA 12 ft fall to head -LOC Time Seen by Provider: 09/30/16 20:14 HPI/ROS: CHIEF COMPLAINT: 12 foot fall onto head, headache, laceration, left ankle pain HISTORY OF PRESENT ILLNESS: The patient presents to the ED after he sustained a 12 foot fall onto his head. The patient reportedly jumped off a balcony while at the detention. The patient reportedly was feeling suicidal at the time. He fell landing on his head. The patient has a laceration and hematoma noted to his right forehead. The patient also complains of left ankle pain. The patient denies any low back pain, abdominal pain, chest pain, shortness of breath, numbness, weakness or additional complaints. REVIEW OF SYSTEMS: A comprehensive 10 point review of systems is otherwise negative aside from elements mentioned in the history of present illness. Source: Patient Exam Limitations: No limitations - Personal History Current Tetanus/Diphtheria Vaccine: Yes Current Tetanus Diphtheria and Acellular Pertussis (TDAP): Yes - Medical/Surgical History Hx Asthma: Yes Hx Chronic Respiratory Disease: No Hx Diabetes: No Hx Cardiac Disease: No Hx Renal Disease: No Hx Cirrhosis: No Hx Alcoholism: Yes Hx HIV/AIDS: No Hx Splenectomy or Spleen Trauma: No Other PMH: L ORIF hand, asthma, alcoholism - Social History Smoking Status: Never smoked - Physical Exam Exam: General Appearance: Alert, no distress Head: Scalp hematoma noted, 4 cm scalp/facial laceration noted Eyes: Pupils equal, round, reactive ENT, Mouth: No hemotympanum, no oral trauma Neck: In cervical collar, minimal upper cervical tenderness Respiratory: No chest wall tender, subcutaneous air, lungs clear bilaterally Cardiovascular: Regular rate and rhythm Abdomen: Abdomen is soft and nontender, pelvis stable Skin: No lacerations, No abrasion Back: No midline T/L/S pain Extremities: Tenderness to palpation left lateral malleolus Neurological: A&Ox3, normal motor function, normal sensory exam Constitutional: Initial Vital Signs Temperature (C) 36.3 C 09/30/16 20:12 Heart Rate 101 H 09/30/16 20:12 Respiratory Rate 14 09/30/16 20:12 Blood Pressure 130/81 H 09/30/16 20:12 O2 Sat (%) 96 09/30/16 20:12 O2 Delivery Mode Room Air Allergies/Adverse Reactions: No Known Allergies Allergy (Verified 09/30/16 20:12) Home Medications: Medication Instructions Recorded Albuterol INH Prepack [Proventil 2 puffs IH Q6H PRN 08/29/16 INH Prepack] Ciprofloxacin HCl [Ciprofloxacin] 500 mg PO BID #56 tab 09/02/16 Multivitamins [Multivitamin (*)] 1 each PO DAILY #0 tab 09/02/16 Medical Decision Making - Diagnostics Imaging: Imaging Impressions Ankle X-Ray 09/30/16 20:14 Impression: 1. Acute nondisplaced navicular fracture. 2. Intact ankle mortise. Cervical Spine CT 09/30/16 20:14 Impression: 1. No acute fracture or soft tissue swelling. 2. If the patient has persistent pain or neurologic deficits, consider cervical spine MRI. Findings discussed with Emergency Department physician, Raj Gleason at 09/30/2016 20:53. Head CT 09/30/16 20:14 Impression: 1. No acute fracture or intracranial hemorrhage. 2. Right frontal scalp hematoma. Findings discussed with emergency department physician, Raj Gleason MD on September 30, 2016 at 8:53 p.m. ED Course/Re-evaluation: The patient was taken for a stat CT scan of the head and cervical spine given the mechanism of injury, skull hematoma, laceration and complaints of headache. The patient does have a nondisplaced navicular fracture noted in his left foot. The patient will be treated with a Rios boot and crutches. He is advised to follow up with our on-call orthopedic surgeon Dr. Abdirashid Angulo in the next 1 -2 weeks. He should be weight-bearing as tolerated. The patient did have his laceration repaired by the nurse practitioner which is separately dictated. The patient was evaluated multiple times by myself over a 1 hour period. He remains neurologically intact without evidence of additional traumatic injury. The patient did endorse suicidal thoughts earlier and is currently on suicide watch at the detention. The patient will be getting a full mental health evaluation while at the detention. Re-evaluation at 10:20 p.m.: The patient continues to be neurologically intact and is in no acute distress. The patient will be discharged back to the detention. Differential Diagnosis: Differential diagnosis considered includes intracranial hemorrhage, skull fracture, cervical spine fracture, laceration, ankle fracture, neurovascular injury Departure - Departure Disposition: Home, Routine, Self-Care Clinical Impression: Facial laceration, Navicular fracture of ankle, Suicide ideation Condition: Good Instructions: Foot Fracture in Adults (ED) Additional Instructions: 1. Rios boot and crutches as needed for a nondisplaced fracture in your foot. Please follow up with the orthopedic surgeon you have been referred to in the next week. 2. Suture removal in 5 days for your facial laceration. 3. Return to the ED for any concerns, new pain or worsening symptoms. Referrals: Abdirashid Angulo MD [Medical Doctor] - As per Instructions
[2016-09-30 22:37] VITALS: BP 133/89; PULSE 88; RESP 16; TEMP 97.9
== END 2016-09-30 22:36 | disposition home or self-care (01) ==
LOC: EDUNIT#
PROC: 0HQ1XZZ Repair Face Skin, External Approach (ICD-10-PCS; principal; 2016-09-30)
DX: S92.255A Nondisplaced fracture of navicular [scaphoid] of left foot, initial encounter for closed fracture (principal); S01.81XA Laceration without foreign body of other part of head, initial encounter; J45.909 Unspecified asthma, uncomplicated; Y92.149 Unspecified place in prison as the place of occurrence of the external cause; Y99.8 Other external cause status; Y93.39 Activity, other involving climbing, rappelling and jumping off

== ENCOUNTER 2016-10-01 18:02 | Inpatient (IN) | payer OTHER ==
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
[2016-10-01 18:46] LABS: % IMMATURE GRANULYOCYTES 0.5 % (0.0-1.1); ABSOLUTE IMMATURE GRANULOCYTES 0.03 10^3/uL (0.00-0.10); ADD DIFF? NO; ADD MORPH? NO; ADD SCAN? NO; ATYPICAL LYMPHOCYTE FLAG 30 (0-99); FRAGMENT RBC FLAG 0 (0-99); HEMATOCRIT 38.9 % (40.0-51.0); HEMOGLOBIN 13.4 g/dL (13.7-17.5); LEFT SHIFT FLG 0 (0-99); LIPEMIA HEMOLYSIS FLAG 90 (0-99); MEAN CELL HEMOGLOBIN 33.5 pg (27.9-34.1); MEAN CELL HEMOGLOBIN CONCENTR. 34.4 g/dL (32.4-36.7); MEAN CELL VOLUME 97.3 fL (81.5-99.8); MEAN PLATELET VOLUME 9.7 fL (8.7-11.7); PLATELET CLUMPS FLAG 0 (0-99); PLATELET COUNT 87 10^3/uL (150-400); RED CELL DISTRIBUTION WIDTH 13.2 % (11.5-15.2)
[2016-10-01] MEDS ORDERED: LORazepam 2 MG/ML INJ IVP ONE ×2 (18:52→21:38)
[2016-10-01 19:01] LABS: ANION GAP 12 mEq/L (8-16); CALCIUM 9.5 mg/dL (8.5-10.4); CARBON DIOXIDE 22 mEq/l (22-31); CHLORIDE 103 mEq/L (97-110); CREATININE 1.5 mg/dL (0.7-1.3); ETHANOL SERUM < 10 mg/dL (0-10); GLOMERULAR FILTRATION RATE 52; GLUCOSE 89 mg/dL (70-100); POTASSIUM 3.2 mEq/L (3.5-5.2); SODIUM 137 mEq/L (134-144)
[2016-10-01] MEDS ORDERED: HALOPERIDOL LACT 5 MG/ML INJ IVP ONE (19:08)
[2016-10-01] MEDS ORDERED: LORazepam 2 MG/ML INJ ONE (21:36)
[2016-10-01] MEDS ORDERED: NS 2,000 ML IV ONE (21:37)
[2016-10-01] MEDS ORDERED: chlordiazePOXIDE 25 MG CAP PO PRN (21:59)
[2016-10-01] MEDS ORDERED: HALOPERIDOL LACT 5 MG/ML INJ IVP PRN (21:59)
[2016-10-01] MEDS ORDERED: DEXMEDETOMIDINE HCL 400 MCG in NS 100 ML IV SCH (22:00)
[2016-10-01] MEDS ORDERED: ONDANSETRON 4 MG/2 ML VIAL IVP PRN (22:02)
[2016-10-01] MEDS ORDERED: PROTOCOL POTASSIUM 1 DOSE MISC PRN (22:02)
[2016-10-01] MEDS ORDERED: ACETAMINOPHEN 325 MG TAB PO PRN (22:02)
[2016-10-02] MEDS: NS 1,000 ML IV SCH
[2016-10-02] MEDS: THIAMINE HCL 500 MG in NS 100 ML IV SCH ×2 (01:04→08:13)
[2016-10-02] MEDS: POTASSIUM Cl (KCl) 100 ML IV SCH ×9 (01:59→23:18)
[2016-10-02] MEDS: LORazepam 2 MG/ML INJ IVP PRN ×7 (01:59→16:49)
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
[2016-10-02 06:19] LABS: % IMMATURE GRANULYOCYTES 0.6 % (0.0-1.1); ABSOLUTE IMMATURE GRANULOCYTES 0.03 10^3/uL (0.00-0.10); ADD DIFF? NO; ADD MORPH? NO; ADD SCAN? NO; ATYPICAL LYMPHOCYTE FLAG 40 (0-99); FRAGMENT RBC FLAG 0 (0-99); HEMATOCRIT 32.3 % (40.0-51.0); HEMOGLOBIN 11.2 g/dL (13.7-17.5); LEFT SHIFT FLG 0 (0-99); LIPEMIA HEMOLYSIS FLAG 90 (0-99); MEAN CELL HEMOGLOBIN 34.1 pg (27.9-34.1); MEAN CELL HEMOGLOBIN CONCENTR. 34.7 g/dL (32.4-36.7); MEAN CELL VOLUME 98.5 fL (81.5-99.8); MEAN PLATELET VOLUME 9.7 fL (8.7-11.7); PLATELET CLUMPS FLAG 0 (0-99); PLATELET COUNT 68 10^3/uL (150-400); RED BLOOD CELL COUNT 3.28 10^6/uL (4.40-6.38); RED CELL DISTRIBUTION WIDTH 13.1 % (11.5-15.2)
[2016-10-02 06:26] LABS: INR 1.18 (0.83-1.16)
[2016-10-02 06:51] LABS: ALANINE AMINOTRANSFERASE 65 IU/L (21-72); ALBUMIN 3.2 g/dL (3.5-5.0); ALKALINE PHOSPHATASE 52 IU/L (38-126); ANION GAP 8 mEq/L (8-16); ASPARTATE AMINOTRANSFERASE 86 IU/L (17-59); BILIRUBIN,TOTAL 2.1 mg/dL (0.1-1.4); BILIRUBIN-CONJUGATED 0.6 mg/dL (0.0-0.5); BILIRUBIN-UNCONJUGATED 1.5 mg/dL (0.0-1.1); CARBON DIOXIDE 21 mEq/l (22-31); CHLORIDE 109 mEq/L (97-110); CREATININE 0.8 mg/dL (0.7-1.3); GLOMERULAR FILTRATION RATE > 60; GLUCOSE 76 mg/dL (70-100); MAGNESIUM 1.8 mg/dL (1.6-2.3); POTASSIUM 3.5 mEq/L (3.5-5.2); SODIUM 138 mEq/L (134-144); TOTAL PROTEIN 5.9 g/dL (6.3-8.2)
[2016-10-02 07:23] VITALS: TEMP 99
[2016-10-02] MEDS ORDERED: ENOXAPARIN 40 MG/0.4 ML SYR SC SCH (09:00)
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
--- NOTE | 2016-10-02 13:55 | HOSPPROG ---
Hospitalist Progress Note Assessment/Plan: #Acute Etoh withdrawal: CIWA #Etoh abuse: will need further counseling once mental status clears #Tachycardia: due to w/d #Suicide attempt: on M1, will need psych eval once medically clear Subjective: was hallucinating overnight. None now Objective: Vital Signs Temp Pulse Resp BP Pulse Ox 37.2 C 88 20 94/67 L 96 10/02/16 07:21 10/02/16 11:51 10/02/16 11:51 10/02/16 11:51 10/02/16 11:51 Laboratory Results 10/02/16 06:00 10/02/16 06:00 10/01/16 10/02/16 10/03/16 05:59 05:59 05:59 Intake Total 1884 Output Total 450 Balance 1434 PT 15.0 SEC (12.0-15.0) 10/02/16 06:00 INR 1.18 (0.83-1.16) H 10/02/16 06:00 - Physical Exam Constitutional: no apparent distress, other (restless) Eyes: PERRL Ears, Nose, Mouth, Throat: moist mucous membranes Cardiovascular: regular rate and rhythym, tachycardia Respiratory: no respiratory distress Gastrointestinal: normoactive bowel sounds, soft, non-tender abdomen, no palpable masses Skin: warm Musculoskeletal: full muscle strength Neurologic: AAOx3, CN II-XII Intact, other (tongue fasiculation, tremor) Psychiatric: anxious ICD10 Worksheet Patient Problems: Problems Problem Status Onset Alcohol withdrawal delirium, acute, hyperactive Acute Attempted suicide Acute Delirium tremens Acute Severe major depression Acute Alcohol withdrawal Acute Sepsis Acute Urinary tract infection Acute
[2016-10-02 17:34] LABS: POTASSIUM 3.5 mEq/L (3.5-5.2)
[2016-10-03] MEDS: NS 1,000 ML IV SCH (00:02)
[2016-10-03] MEDS: LORazepam 2 MG/ML INJ IVP PRN (04:20)
[2016-10-03 04:22] LABS: % IMMATURE GRANULYOCYTES 0.4 % (0.0-1.1); ABSOLUTE IMMATURE GRANULOCYTES 0.02 10^3/uL (0.00-0.10); ADD DIFF? NO; ADD MORPH? NO; ADD SCAN? NO; ATYPICAL LYMPHOCYTE FLAG 0 (0-99); FRAGMENT RBC FLAG 0 (0-99); HEMATOCRIT 33.2 % (40.0-51.0); HEMOGLOBIN 11.8 g/dL (13.7-17.5); LEFT SHIFT FLG 0 (0-99); LIPEMIA HEMOLYSIS FLAG 90 (0-99); MEAN CELL HEMOGLOBIN CONCENTR. 35.5 g/dL (32.4-36.7); MEAN CELL VOLUME 95.7 fL (81.5-99.8); MEAN PLATELET VOLUME 9.4 fL (8.7-11.7); PLATELET CLUMPS FLAG 20 (0-99); PLATELET COUNT 78 10^3/uL (150-400); RED BLOOD CELL COUNT 3.47 10^6/uL (4.40-6.38); RED CELL DISTRIBUTION WIDTH 12.7 % (11.5-15.2)
[2016-10-03 04:39] LABS: ANION GAP 7 mEq/L (8-16); CALCIUM 8.3 mg/dL (8.5-10.4); CARBON DIOXIDE 19 mEq/l (22-31); CHLORIDE 109 mEq/L (97-110); CREATININE 0.6 mg/dL (0.7-1.3); GLOMERULAR FILTRATION RATE > 60; GLUCOSE 97 mg/dL (70-100); MAGNESIUM 2.1 mg/dL (1.6-2.3); POTASSIUM 4.1 mEq/L (3.5-5.2); SODIUM 135 mEq/L (134-144)
[2016-10-03 06:11] VITALS: O2SAT 100
[2016-10-03] MEDS ORDERED: THIAMINE HCL 500 MG in NS 100 ML IV SCH (06:59)
--- NOTE | 2016-10-03 08:18 | HOSPPROG ---
Hospitalist Progress Note Assessment/Plan: #Acute Etoh withdrawal: still requiring moderate amount of BZs #Etoh abuse: will need further counseling once mental status clears #Tachycardia: due to w/d. Improved #Suicide attempt: on M1, will need psych eval once medically clear #Hypophosphatemia: on protocol # Subjective: no N/V Objective: Vital Signs Temp Pulse Resp BP Pulse Ox 37.2 C 99 22 H 126/83 H 100 10/02/16 07:21 10/03/16 06:00 10/03/16 06:00 10/03/16 06:00 10/03/16 06:00 Laboratory Results 10/03/16 04:15 10/03/16 04:15 10/02/16 10/03/16 10/04/16 05:59 05:59 05:59 Intake Total 1884 2775 Output Total 450 1600 250 Balance 1434 1175 -250 PT 15.0 SEC (12.0-15.0) 10/02/16 06:00 INR 1.18 (0.83-1.16) H 10/02/16 06:00 - Physical Exam Constitutional: no apparent distress Eyes: PERRL Ears, Nose, Mouth, Throat: moist mucous membranes Cardiovascular: regular rate and rhythym, tachycardia Respiratory: no respiratory distress Gastrointestinal: normoactive bowel sounds Genitourinary: no bladder fullness Skin: warm Musculoskeletal: full muscle strength Neurologic: AAOx3, other (tremor, tongue fasiculations) Psychiatric: interacting appropriately ICD10 Worksheet Patient Problems: Problems Problem Status Onset Alcohol withdrawal delirium, acute, hyperactive Acute Attempted suicide Acute Delirium tremens Acute Severe major depression Acute Alcohol withdrawal Acute Sepsis Acute Urinary tract infection Acute
[2016-10-03] MEDS: THIAMINE HCL 500 MG in NS 100 ML IV SCH (08:47)
--- NOTE | 2016-10-03 09:31 | PDINTPN ---
[employer]ift [employer] Progress Note Assessment/Plan: Assessment: * Alcoholism * Alcohol withdrawals-resolved * Left ankle fracture-remains in boot * Suicidal ideation Plan: Patient is medically cleared for psychiatric evaluation. Subjective: Patient is sitting up in bed. He is awake and alert. Pain is well controlled. Objective: Vital Signs Temp Pulse Resp BP Pulse Ox 37.2 C 99 22 H 126/83 H 100 10/02/16 07:21 10/03/16 06:00 10/03/16 06:00 10/03/16 06:00 10/03/16 06:00 Laboratory Results 10/03/16 04:15 10/03/16 04:15 10/02/16 10/03/16 10/04/16 05:59 05:59 05:59 Intake Total 1884 2775 Output Total 450 1600 250 Balance 1434 1175 -250 PT 15.0 SEC (12.0-15.0) 10/02/16 06:00 INR 1.18 (0.83-1.16) H 10/02/16 06:00 Physical Exam - Physical Exam General Appearance: alert, no apparent distress EENT: PERRL/EOMI, normal ENT inspection Neck: non-tender, full range of motion, supple, normal inspection Respiratory: chest non-tender, lungs clear, normal breath sounds Cardiac/Chest: normal peripheral pulses, regular rate, rhythm Peripheral Pulses: 2+: carotid (R), carotid (L), femoral (R), femoral (L), dorsalis-pedis (R), dorsalis-pedis (L) Abdomen: normal bowel sounds, non-tender, soft Male Genitalia: deferred Rectal: deferred Skin: normal color, warm/dry Extremities: other (With boot on the left foot) Neuro/Psych: alert ICD10 Worksheet Patient Problems: Problems Problem Status Onset Alcohol withdrawal delirium, acute, hyperactive Acute Attempted suicide Acute Delirium tremens Acute Severe major depression Acute Alcohol withdrawal Acute Sepsis Acute Urinary tract infection Acute
[2016-10-03 09:35] VITALS: BP 120/78; RESP 16
[2016-10-03] MEDS ORDERED: ENOXAPARIN 40 MG/0.4 ML SYR SC SCH (11:00)
[2016-10-03 11:39] VITALS: PULSE 135
--- NOTE | 2016-10-03 13:22 | GDS ---
[f rep st] DISCHARGE SUMMARY DISCHARGE DIAGNOSES: 1. Acute alcohol withdrawal. 2. Alcohol abuse. 3. Tachycardia. 4. Suicide attempt. 5. Hypophosphatemia. HISTORY OF PRESENT ILLNESS: The patient is a 40-year-old male with history of significant alcohol abuse, who was sent from [facility]. He had been in the emergency room the night prior to this admission for possible suicide attempt by jumping off a 12 foot balcony. At that time, head CT was negative, but he was diagnosed with a foot fracture. He went back to the emergency room, but is now back due to increased confusion and hallucinations. He was hearing voices of people telling him to kill himself. He was drinking heavily up until the point of being incarcerated last . He was placed on an M1 hold and admitted to the ICU for further treatment. HOSPITAL COURSE BY PROBLEM: 1. Acute alcohol withdrawal: was admitted to ICU and placed on CIWA protocol. He is alert and oriented x3 now, answering questions appropriately. Minimal tremor. I will send home on Tranxene for a few more days. Case management provided detox centers. He will be going home with his mother and his brother will be staying with him as well. He was advised not to drink while on this medication. 2. Alcohol abuse. Patient was counseled on cessation as stated above. 3. Hypophosphatemia, repleted. 4. Tachycardia: due dehydration and alcohol withdrawal. Resolved. 5. Suicidal ideations: evaluated by [facility] and deemed of no harm to himself. DISPOSITION: Patient is stable for discharge home with his mother. New medication is Tranxene. Followup alcohol rehab treatment program. /[id number]/MODL MTDD
[2016-10-04] MEDS ORDERED: THIAMINE HCL 100 MG TAB PO SCH (09:00)
== END 2016-10-03 13:37 | disposition home or self-care (01) | DRG 897 ==
LOC: EEVIPCON 19:08 → F2N 10-02 00:16
PROVIDERS: ADMIT Internal Medicine; ATTEND Internal Medicine
DX: F10.231 Alcohol dependence with withdrawal delirium (principal); F32.9 Major depressive disorder, single episode, unspecified; N17.9 Acute kidney failure, unspecified; D69.6 Thrombocytopenia, unspecified; E83.39 Other disorders of phosphorus metabolism; T14.91 Suicide attempt; S92.255D Nondisplaced fracture of navicular [scaphoid] of left foot, subsequent encounter for fracture with routine healing
CPT/HCPCS: 80305; 96374; 97162-GP; 97165-GO; G0480; J2060; J3411

== ENCOUNTER → 2016-10-18 | Outpatient (CLI) | payer OTHER | LOC: FIMAGING 09:59 | PROVIDERS: ATTEND Orthopaedic Surgery | DX: S92.252A Displaced fracture of navicular [scaphoid] of left foot, initial encounter for closed fracture (principal); S92.242A Displaced fracture of medial cuneiform of left foot, initial encounter for closed fracture; S92.222A Displaced fracture of lateral cuneiform of left foot, initial encounter for closed fracture ==